=== PATIENT | female | born 1990 | race Caucasian/White ===

== ENCOUNTER 2020-07-26 09:44 | Emergency (ER) | payer OTHER ==
[2020-07-26] MEDS ORDERED: NORCO 5-325 TA1 EACH PO (11:19)
[2020-07-26] MEDS ORDERED: BACTRIM DS TAB1 EACH PO (11:19)
[2020-07-26] MEDS ORDERED: NAPROXEN500 MG PO (11:19)
== END 2020-07-26 11:37 | disposition home or self-care (01) ==
LOC: FER 09:44
DX: L05.01 Pilonidal cyst with abscess (principal)
CPT/HCPCS: 87070; 87077; 87186; 87205

== ENCOUNTER 2020-11-11 21:30 | Emergency (ER) | payer OTHER ==
[~2020-11-11 21:30] MED LIST: BACTRIM DS TAB1 EACH PO; NAPROXEN500 MG PO; NORCO 5-325 TA1 EACH PO
[2020-11-12] MEDS ORDERED: NORCO 5-325 TA1 EACH PO ×2 (00:11→00:23)
[2020-11-12] MEDS ORDERED: CEPHALEXIN500 M1 PO ×2 (00:11→00:23)
[2020-11-12] MEDS ORDERED: IBUPROFEN800 MG PO ×2 (00:11→00:23)
== END 2020-11-12 00:35 | disposition home or self-care (01) ==
LOC: FER 21:30
DX: L05.01 Pilonidal cyst with abscess (principal); F17.210 Nicotine dependence, cigarettes, uncomplicated; Z90.710 Acquired absence of both cervix and uterus; Z98.890 Other specified postprocedural states
CPT/HCPCS: 87070; 87205

== ENCOUNTER → 2021-01-17 | Day surgery (SDC) | payer OTHER ==
[~2021-01-17] VITALS: Ht 154.9 cm; Wt 78.2 kg
[~2021-01-17] MED LIST changes: +CEPHALEXIN500 M1 PO; +IBUPROFEN800 MG PO; +LEVAQUIN500 MG PO; +VOLTAREN **OUT50 MG PO
[2021-01-17 07:38] LABS: BUN/CREAT RATIO (CALC) 12.7 RATIO; CREATININE 0.71 mg/dL (0.51-0.95); POTASSIUM 3.7 mmol/L (3.5-5.1)
[2021-01-17 07:59] LABS: HCT 39.3 % (37.0-47.0); HGB 13.1 g/dl (12.5-16.0); MCH 30.8 pg (25.0-31.0); MCHC 33.3 g/dL (32.0-36.0); MCV 92.5 fL (78.0-100.0); MPV 9.8 fL (6.0-9.5); RBC 4.25 M/uL (4.20-5.40); RDW 12.3 % (11.5-14.0); WBC 7.1 K/uL (4.0-10.5)
== END | disposition home or self-care (01) ==
LOC: FAS 12-13 09:00
PROVIDERS: Surgery
DX: L05.01 Pilonidal cyst with abscess (principal); F17.200 Nicotine dependence, unspecified, uncomplicated
CPT/HCPCS: 36415; 80048; J0690; J1100; J2250; J2405; J2704; J2710; J3010; J7120